=== PATIENT | female | born 1980 | race Caucasian/White ===

== ENCOUNTER 2024-01-21 21:51 | Emergency (ER) | payer SELFPAY ==
[2024-01-21 21:54] VITALS: BP 162/86
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
[2024-01-21] MEDS: MOTRIN 600 MG PO (23:19)
== END 2024-01-22 01:14 | disposition home or self-care (01) ==
LOC: EMR 21:51
PROVIDERS: EMERGENCY PHYSICIAN Student in an Organized Health Care Education/Training Program
DX: M79.18 Myalgia, other site (principal); V43.52XA Car driver injured in collision with other type car in traffic accident, initial encounter; Y92.410 Unspecified street and highway as the place of occurrence of the external cause
CPT/HCPCS: 99284; 70450; 71046; 72125; 73110